=== PATIENT | female | born 2000 | race Hispanic/Latino ===

== ENCOUNTER 2022-01-28 19:23 | Emergency (ER) | payer OTHER | END 2022-01-28 20:41 | disposition home or self-care (01) | LOC: NAV ERS 19:23 | DX: H60.501 Unspecified acute noninfective otitis externa, right ear (principal) | CPT/HCPCS: 99282 ==

== ENCOUNTER 2022-12-03 08:47 | Emergency (ER) | payer OTHER ==
[2022-12-03] MEDS ORDERED: Boostrix 0.5 ML (Tdap) VIAL (>/=7 yrs of age) ONE (09:16)
[2022-12-03] MEDS ORDERED: Bacitracin 1 PK ONE (09:16)
[2022-12-03] MEDS ORDERED: Acetaminophen 500 MG TAB ONE ×2 (09:24→09:28)
== END 2022-12-03 10:21 | disposition home or self-care (01) ==
LOC: NAV ERS 08:47
DX: S90.31XA Contusion of right foot, initial encounter (principal); X58.XXXA Exposure to other specified factors, initial encounter
CPT/HCPCS: 90471; 90715

== ENCOUNTER 2024-02-05 13:02 | Emergency (ER) | payer OTHER ==
[2024-02-05 13:31] LABS: #Eosinophils 0.1 thou/uL (0.0-0.7); #Lymphocytes 1.1 thou/uL (1.20-3.40); #Monocytes 0.6 thou/uL (0.11-0.59); #Neutrophils 8.8 thou/uL (1.40-6.50); %Basophils 0.2 % (0.0-1.0); %Eosinophils 0.7 % (0.0-10.0); %Lymphocytes 10.1 % (21.0-51.0); %Monocytes 5.4 % (0.0-10.0); %Neutrophils 83.6 % (42.0-75.0); Hematocrit 43.7 % (36.0-47.0); Hemoglobin 14.5 g/dL (12.0-16.0); Mean Corpuscular HGB CONC 33.1 g/dL (32.0-36.0); Mean Corpuscular Hemoglobin 29.9 pg (27.0-31.0); Mean Corpuscular Volume 90.1 fl (78.0-98.0); Mean Platelet Volume 8.3 fL (7.4-10.4); Platelet Count 174 10x3/uL (130-400); RBC Distribution Width 13.8 % (11.5-14.5); Red Blood Cell (RBC) Count 4.85 mill/uL (4.20-5.40); White Blood Cell (WBC) Count 10.5 10x3/uL (4.8-10.8)
[2024-02-05] MEDS ORDERED: Sodium Chloride 0.9% 100 ML ONE (13:41)
[2024-02-05] MEDS ORDERED: Piperacillin/Tazobactam 4.5 GM VIAL ONE (13:41)
[2024-02-05] MEDS ORDERED: Ondansetron PF 4 MG/2 ML Vial ONE (13:41)
[2024-02-05] MEDS ORDERED: Acetaminophen 500 MG TAB ONE (13:41)
[2024-02-05] MEDS ORDERED: Morphine 4 MG/ML VIAL ONE (13:41)
[2024-02-05] MEDS ORDERED: Sodium Chloride 0.9% 1,000 ML ONE (13:41)
[2024-02-05 13:44] LABS: ALT (SGPT) 29 U/L (8-55); AST (SGOT) 17 U/L (5-34); Albumin 4.5 g/dL (3.5-5.0); Alkaline Phosphatase 74 U/L (40-110); Anion Gap 14 mmol/L (10-20); BUN (Urea Nitrogen) 11 mg/dL (7.0-18.7); Bilirubin, Total 0.4 mg/dL (0.2-1.2); Calc. Creatinine Clearance 0 mL/min (70-130); Calcium 9.5 mg/dL (7.8-10.44); Carbon Dioxide 20 mmol/L (22-29); Chloride 107 mmol/L (98-107); Estimated GFR 121; Globulin 3.3 g/dL (2.4-3.5); Glucose 99 mg/dL (70-105); Potassium 3.9 mmol/L (3.5-5.1); Protein, Total 7.8 g/dL (6.0-8.3); Sodium 137 mmol/L (136-145)
[2024-02-05 13:51] LABS: BHCG - Serum Negative (NEGATIVE); Pregs Control Bar Appear? YES (CONTROL BAR)
[2024-02-05 14:15] LABS: Bilirubin Negative (Negative); Blood, Urine Small (Negative); Glucose, Urine (Dipstick) Negative (Negative); Ketone, Urine 40 mg/dL (Negative); Leukocyte Negative (Negative); Nitrite Negative (Negative); Protein, Urine (Dipstick) 30 mg/dL (Neg-Trace); Specific Gravity, Urine 1.025 (1.005-1.030); Urobilinogen 0.2 mg/dL (Less than 2); pH, Urine 5.5 (5.0-9.0)
[2024-02-05 14:16] LABS: Clarity Hazy (Clear)
[2024-02-05 14:21] LABS: CAUTI Indications for Culture Pelvic or flank pain; Mucous/LPF 3+ LPF (<2+); RBC/HPF 0-3 HPF (0-3); Squamous Epithelial 0-3 HPF (0-3); WBC/HPF 0-3 HPF (0-3)
[2024-02-05 14:22] LABS: Urine Culture Reflex No No
[2024-02-05] MEDS ORDERED: Vancomycin HCl 750 MG VIAL ONE (14:39)
[2024-02-05] MEDS ORDERED: diphenhydrAMINE 50 MG/ML VIAL ONE (15:23)
== END 2024-02-05 21:08 | disposition short-term general hospital (02) ==
LOC: NAV ERS 13:02
DX: N71.0 Acute inflammatory disease of uterus (principal)
CPT/HCPCS: 36415; 51701; 71045; 80053; 81001; 83605; 83690; 84145; 84703; 85025; 87040; 87428; 93005; 96365; 96367; 96375; J1200; J2272; J2405; J2543; J3370; J7030

== ENCOUNTER 2024-12-29 08:10 | Emergency (ER) | payer OTHER, SELFPAY ==
[2024-12-29 09:18] LABS: #Basophils 0.0 thou/uL (0.0-0.2); #Eosinophils 0.1 thou/uL (0.0-0.7); #Lymphocytes 2.5 thou/uL (1.20-3.40); #Monocytes 0.5 thou/uL (0.11-0.59); #Neutrophils 2.9 thou/uL (1.40-6.50); %Basophils 0.8 % (0.0-1.0); %Eosinophils 1.2 % (0.0-10.0); %Lymphocytes 41.4 % (21.0-51.0); %Monocytes 8.5 % (0.0-10.0); %Neutrophils 48.1 % (42.0-75.0); Hematocrit 39.1 % (36.0-47.0); Hemoglobin 14.1 g/dL (12.0-16.0); Mean Corpuscular Hemoglobin 31.6 pg (27.0-31.0); Mean Corpuscular Volume 87.6 fl (78.0-98.0); Platelet Count 225 10x3/uL (130-400); Red Blood Cell (RBC) Count 4.47 mill/uL (4.20-5.40); White Blood Cell (WBC) Count 6.0 10x3/uL (4.8-10.8)
[2024-12-29] MEDS ORDERED: Acetaminophen 500 MG TAB ONE (10:05)
== END 2024-12-29 10:15 | disposition short-term general hospital (02) ==
LOC: NAV ERS 08:10
DX: M79.604 Pain in right leg (principal); R79.89 Other specified abnormal findings of blood chemistry; Z86.718 Personal history of other venous thrombosis and embolism
CPT/HCPCS: 36415; 85025; 85379; 99284

== ENCOUNTER 2025-01-29 21:26 | Emergency (ER) | payer OTHER, SELFPAY | END 2025-01-30 00:12 | disposition home or self-care (01) | LOC: NAV ERS 21:26 | DX: A08.4 Viral intestinal infection, unspecified (principal) | CPT/HCPCS: 87428; 99284; Q0162 ==